=== PATIENT | female | born 1985 | race American Indian/Alaskan Native ===

== ENCOUNTER 2020-11-24 20:40 | Outpatient (CLI) | payer MEDICAID ==
[2020-11-24 21:56] VITALS: BP 116/75
[2020-11-24] MEDS ORDERED: LACTATED RINGERS 1,000 ML ONE (23:24)
[2020-11-24] MEDS ORDERED: LACTATED RINGERS 500 ML IV ONE (23:38)
[2020-11-24] MEDS ORDERED: TERBUTALINE 1 MG/1 ML INJ SUB-Q SCH (23:45)
== END 2020-11-25 00:49 | disposition home or self-care (01) ==
LOC: TRG 20:40 → APU 20:49 → TRG 11-25 00:49
PROVIDERS: ATTEND Obstetrics & Gynecology
DX: O26.893 Other specified pregnancy related conditions, third trimester (principal); M79.89 Other specified soft tissue disorders; Z3A.34 34 weeks gestation of pregnancy
CPT/HCPCS: 59025; J7120; 96360

== ENCOUNTER 2020-12-04 21:08 | Observation (INO) | payer MEDICAID ==
[2020-12-04] MEDS ORDERED: LACTATED RINGERS 1000 ML IV SOLN IV SCH (22:15)
[2020-12-04 22:23] LABS: Bilirubin,Urine NEG (Negative); Blood,Urine SM (Negative); Color,Urine Straw (Yellow); Mucus,Urine FEW /HPF; Protein,Urine <15 mg/dL mg/dL (Negative); Urobilinogen,Urine < 2.0 mg/dL (<2.0)
[2020-12-05] MEDS ORDERED: FLUCONAZOLE 200 MG TAB PO ONE (00:16)
[2020-12-05] MEDS ORDERED: DOCUSATE SODIUM 100 MG CAP PO PRN (00:51)
[2020-12-05] MEDS ORDERED: ACETAMINOPHEN 325 MG TAB PO PRN (00:51)
[2020-12-05 01:12] VITALS: BP 121/76
[2020-12-05] MEDS ORDERED: metroNIDAZOLE 500 MG TAB PO SCH (03:00)
--- NOTE | 2020-12-05 08:24 | History and Physical Report ---
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 She denies vaginal bleeding or leakage of fluid. Her was complicated by sickle cell trait, silent carrier for alpha thalassemia, and large for dates. She is GBS negative. Past History Past Medical History: no pertinent history Past Surgical History: D&C Family/Genetic History: sickle cell/trait Social history: no significant social history - Obstetrical History Expected Date of Delivery: 12/31/20 Actual Gestation: 36 Week(s) 2 Day(s) : 6 Para: 2 Hx # Term Pregnancies: 0 Number of Pregnancies: 0 Spontaneous Abortions: 2 Induced : 1 Number of Living Children: 2 Medications and Allergies Allergies Allergy/AdvReac Type Severity Reaction Status Date / Time shellfish derived Allergy Swelling Verified 11/10/15 08:44 Home Medications Medication Instructions Recorded Confirmed Last Taken Type Ibuprofen [Motrin 800 MG tab] 800 mg PO Q8HR PRN #20 tablet 10/14/14 12/05/20 Unknown Rx Promethazine [Phenergan TAB] 25 mg PO Q8H PRN #20 tablet 10/14/14 12/05/20 Unknown Rx predniSONE [Deltasone] 20 mg PO QAM #5 tab 10/14/14 12/05/20 Unknown Rx Active Meds: Active Medications Acetaminophen (Acetaminophen 325 Mg Tab) 650 mg PO Q4H PRN PRN Reason: Pain MILD(1-3)/Fever >100.5/GIBBONS Docusate Sodium (Docusate Sodium 100 Mg Cap) 100 mg PO Q12H PRN PRN Reason: Constipation Lactated Ringer's (Lactated Ringers 1000 Ml Iv Soln) 1,000 ml IV DIRECT MAGALY Last Admin: 12/04/20 22:28 Dose: 1,000 ml Documented by: Metronidazole (Metronidazole 500 Mg Tab) 500 mg PO Q12HR MAGALY; Protocol Multivitamins/Iron/Calcium ( [id number] Fumarate-Folic Acid Vit Tab) 1 each PO QDAY MAGALY Review of Systems All systems: negative - Vital Signs Vital signs: Vital Signs Pulse BP 80 119/67 12/04/20 22:01 12/04/20 22:01 Temp Pulse Resp BP Pulse Ox 98.6 F 81 18 121/76 99 12/05/20 07:00 12/05/20 08:20 12/05/20 02:18 12/05/20 01:12 12/05/20 08:20 - Physical Exam Breasts: Positive: deferred Abdomen: Positive: soft (obese, gravid ) Uterus: Positive: enlarged (gravid ) Extremities: Positive: normal - Obstetrical FHR: auscultation normal Uterine Contraction Monitor Mode: External Cervical Dilatation: 1 Uterine Contraction Pattern: Irregular Uterine Tone Measurement Phase: Resting Results All other labs normal. Assessment and Plan A: IUP at 36w2d contractions LGA fetus Sickle Cell Trait Silent Carrier for Alpha Thalassemia GBS negative P: Admit for observation Observe for cervical change Monitor maternal and status
--- NOTE | 2020-12-05 08:26 | Short Stay Summary ---
Short Stay Documentation Date of service: 12/05/20 - History H&P: dictated - Allergies and Medications Current Medications: Allergies shellfish derived Allergy (Verified 11/10/15 08:44) Swelling Home Medications Medication Instructions Recorded Confirmed Last Taken Type Ibuprofen [Motrin 800 MG tab] 800 mg PO Q8HR PRN #20 tablet 10/14/14 12/05/20 Unknown Rx Promethazine [Phenergan TAB] 25 mg PO Q8H PRN #20 tablet 10/14/14 12/05/20 Unknown Rx predniSONE [Deltasone] 20 mg PO QAM #5 tab 10/14/14 12/05/20 Unknown Rx Active Medications Acetaminophen (Acetaminophen 325 Mg Tab) 650 mg PO Q4H PRN PRN Reason: Pain MILD(1-3)/Fever >100.5/GIBBONS Docusate Sodium (Docusate Sodium 100 Mg Cap) 100 mg PO Q12H PRN PRN Reason: Constipation Lactated Ringer's (Lactated Ringers 1000 Ml Iv Soln) 1,000 ml IV DIRECT MAGALY Last Admin: 12/04/20 22:28 Dose: 1,000 ml Documented by: Metronidazole (Metronidazole 500 Mg Tab) 500 mg PO Q12HR MAGALY; Protocol Multivitamins/Iron/Calcium ( [id number] Fumarate-Folic Acid Vit Tab) 1 each PO QDAY MAGALY - Hospital course Hospital course: Pt was admitted for observation for contractions. She made no cervical change for 12 hours without cervical change. She was then discharged home, with labor precautions. - Disposition Condition at discharge: Stable Disposition: 01 HOME / SELF CARE / HOMELESS - Discharge Diagnoses (1) contractions Status: Acute Short Stay Discharge Plan Activity: no restrictions Weight Bearing Status: Full Weight Bearing Follow up with: KARY QURESHI MD [Primary Care Provider] - 7 Days LORETTA PLATT CNM [Advanced Practice Nurse] - 7 Days (Keep scheduled appt ) Forms: [facility] Discharge Summary
[2020-12-05] MEDS ORDERED: PRENATAL VIT27-FE FUMARATE-FOLIC ACID VIT TAB PO SCH (10:00)
== END 2020-12-05 08:30 | disposition home or self-care (01) ==
LOC: TRG 21:08 → APU 21:11 → TRG 12-05 00:51 → LD 12-05 01:05
PROVIDERS: ADMIT Obstetrics & Gynecology; ATTEND Obstetrics & Gynecology
DX: O60.03 Preterm labor without delivery, third trimester (principal); Z3A.36 36 weeks gestation of pregnancy
CPT/HCPCS: 59025; 81001; G0378; J7120; 96360

== ENCOUNTER 2020-12-31 23:43 | Outpatient (CLI) | payer MEDICAID ==
[2021-01-01 00:26] VITALS: BP 122/85
== END 2021-01-01 01:00 | disposition home or self-care (01) ==
LOC: TRG 23:43 → APU 23:44 → TRG 01-01 01:00
PROVIDERS: ATTEND Obstetrics & Gynecology
DX: Z34.93 Encounter for supervision of normal pregnancy, unspecified, third trimester (principal); Z3A.40 40 weeks gestation of pregnancy
CPT/HCPCS: 59025

== ENCOUNTER 2021-01-01 05:08 | Inpatient (IN) | payer MEDICAID ==
[2021-01-01] MEDS ORDERED: ACETAMINOPHEN 325 MG TAB PO PRN (05:58)
[2021-01-01] MEDS ORDERED: LOPERAMIDE 2 MG CAP PO PRN (05:58)
[2021-01-01] MEDS ORDERED: fentaNYL 100 MCG/2 ML INJ IV PRN (05:58)
[2021-01-01] MEDS ORDERED: OXYTOCIN 10 UNIT/1 ML INJ IM PRN (05:58)
[2021-01-01] MEDS ORDERED: miSOPROStol 200 MCG TAB PR PRN (05:58)
[2021-01-01] MEDS ORDERED: BUTORPHANOL 2 MG/1 ML INJ IV PRN (05:58)
[2021-01-01] MEDS ORDERED: NALOXONE 0.4 MG/1 ML INJ IV PRN (05:58)
[2021-01-01] MEDS ORDERED: TERBUTALINE 1 MG/1 ML INJ SUB-Q PRN (05:58)
[2021-01-01] MEDS ORDERED: LIDOCAINE (2%) 20 MG/1 ML VIAL 20 ML MDV INFILTRATI ONE (05:58)
[2021-01-01] MEDS ORDERED: MINERAL OIL 30 ML ORAL LIQD PO PRN (05:58)
[2021-01-01] MEDS ORDERED: METHYLERGONOVINE MALEATE 0.2 MG/ML VIAL IM PRN (05:58)
[2021-01-01] MEDS ORDERED: ONDANSETRON 4 MG/2 ML INJ IV PRN (05:58)
[2021-01-01] MEDS ORDERED: CARBOPROST TROMETHAMINE 250 MCG/1 ML INJ IM PRN (05:58)
[2021-01-01] MEDS ORDERED: ePHEDrine SULFATE 50 MG/1 ML INJ IV PRN ×2 (05:58→08:00)
[2021-01-01] MEDS ORDERED: OXYTOCIN DRIP 30 UNITS/500 ML BAG IV SCH ×3 (06:00→07:00)
[2021-01-01 06:31] LABS: Hematocrit 35.4 % (30.3-42.9); Hemoglobin 12.2 gm/dl (10.1-14.3); Mean Corpuscular HGB Conc 34 % (30-34); Mean Corpuscular Volume 88 fl (79-97); Platelet Count 149 K/mm3 (140-440); Red Blood Count 4.02 M/mm3 (3.65-5.03); Red Cell Distribution Width 16.1 % (13.2-15.2)
[2021-01-01] MEDS: LACTATED RINGERS 1,000 ML IV SCH ×3 (07:14→13:17)
--- NOTE | 2021-01-01 07:55 | Anesthesia Consultation ---
Anesthesia Consult and Med Hx Date of service: 01/01/21 - Airway Anesthetic Teeth Evaluation: Good ROM Head & Neck: Adequate Mental/Hyoid Distance: Adequate Mallampati Class: Class II Intubation Access Assessment: Probably Good - Pulmonary Exam CTA: Yes - Cardiac Exam Cardiac Exam: RRR - Pre-Operative Health Status ASA Pre-Surgery Classification: ASA2 Proposed Anesthetic Plan: Epidural - Pulmonary Hx Asthma: No - Cardiovascular System Hx Hypertension: No - Central Nervous System Hx Seizures: No Hx Psychiatric Problems: No - Endocrine Hx Renal Disease: No Hx Hypothyroidism: No Hx Hyperthyroidism: No - Hematic Hx Anemia: Yes Hx Sickle Cell Disease: No (Trait) - Other Systems Hx Alcohol Use: No
--- NOTE | 2021-01-01 07:55 | Progress Note ---
Labor Epidural - Labor Epidural Start Time: 07:35 Stop Time: 07:37 Performed by:: MARAL GOEL Procedure: Patient is requesting epidural for labor pain. H&P, and labs reviewed. Procedure explained, questions answered, consent obtained. Patient in sitting position with blood pressure cuff and pulse ox on and working. Timeout performed immediately before start of procedure. Sterile chlorahexadine 0.5% prep/drape. 3 mL 1% lidocaine skin wheal at L[3]-L[4]. 17-gauge tuohy epidural needle advanced to [id number] with saline at [7] cm. 25-gauge spinal needle advanced until clear, free-flowing CSF. Intrathecal dexmedetomidine [5] mcg administered and needle removed. Epidural catheter advanced to [12] cm, negative aspiration for blood and csf, negative test dose 3 ml 1.5% lidocaine with epinephrine. Sterile sponge and tegaderm applied, followed by tape reinforcement. Patient tolerated procedure well.
[2021-01-01] MEDS ORDERED: NALOXONE 2 MG/2 ML INJ IV PRN (08:00)
--- NOTE | 2021-01-01 08:15 | History and Physical Report ---
History of Present Illness Date of examination: 01/01/21 Date of admission: 01/01/2021 Chief complaint: Contractions History of present illness: 35-year-old -0-3-2 at 40+1 weeks who presents in active labor. The patient initiated care in the first trimester. Her course is complicated by borderline thrombocytopenia, pericardial effusion with echogenic intracardiac foci. The patient is GBS negative. The patient denies leakage of fluid. Past History Past Medical History: other (Alpha thalassemia carrier) Past Surgical History: no surgical history Social history: - Obstetrical History Expected Date of Delivery: 12/31/20 Actual Gestation: 40 Week(s) 1 Day(s) : 6 Para: 2 Hx # Term Pregnancies: 2 Number of Pregnancies: 0 Spontaneous Abortions: 2 Induced : 1 Number of Living Children: 2 Medications and Allergies Allergies Allergy/AdvReac Type Severity Reaction Status Date / Time shellfish derived Allergy Swelling Verified 11/10/15 08:44 Home Medications Medication Instructions Recorded Confirmed Last Taken Type Ascorbic Acid [Vitamin C] 1 tab PO DAILY 01/01/21 01/01/21 Unknown History Mv-Min/Vit C/Elderber/Herb 124 1 each PO DAILY 01/01/21 01/01/21 12/31/20 History [Airborne Elderberry Tablet Eff] Vit-Fe Fumar-FA [ 1 tab PO QDAY 01/01/21 01/01/21 12/31/20 History Vitamin] Active Meds: Active Medications Acetaminophen (Acetaminophen 325 Mg Tab) 650 mg PO Q4H PRN PRN Reason: Pain, Mild (1-3) Butorphanol Tartrate (Butorphanol 2 Mg/1 Ml Inj) 1 mg IV Q2H PRN PRN Reason: Pain, Moderate(4-6) LABOR PAIN Carboprost Tromethamine (Carboprost Tromethamine 250 Mcg/1 Ml Inj) 250 mcg IM ONCE PRN PRN Reason: Uterine Bleeding Ephedrine Sulfate (Ephedrine Sulfate 50 Mg/1 Ml Inj) 10 mg IV Q2M PRN PRN Reason: Hypotension Fentanyl (Fentanyl 100 Mcg/2 Ml Inj) 100 mcg IV Q2H PRN PRN Reason: Pain,Severe (7-10) LABOR PAIN Lactated Ringer's (Lactated Ringers) 1,000 mls @ 125 mls/hr IV DIRECT MAGALY Last Admin: 01/01/21 07:32 Dose: 125 mls/hr Documented by: Oxytocin/Sodium Chloride (Pitocin/Ns 30 Unit/500ml) 30 units in 500 mls @ 40 mls/hr IV TITR MAGALY; Protocol Oxytocin/Sodium Chloride (Pitocin/Ns 30 Unit/500ml) 30 units in 500 mls @ 2 mls/hr IV TITR MAGALY; Protocol Fentanyl/Bupivacaine/Sodium Chlor (Fentanyl-Bupiv 2 Mcg/Ml-0.125%) 200 mcg in 100 mls @ 12 mls/hr EPIDURAL TITR MAGALY; Protocol Loperamide HCl (Loperamide 2 Mg Cap) 2 mg PO ONCE PRN PRN Reason: give with Hemabate Methylergonovine Maleate (Methylergonovine Maleate 0.2 Mg/Ml Vial) 0.2 mg IM ONCE PRN PRN Reason: Uterine Bleeding Mineral Oil (Mineral Oil 30 Ml Oral Liqd) 30 ml PO QHS PRN PRN Reason: Constipation Misoprostol (Misoprostol 200 Mcg Tab) 800 mcg FL ONCE PRN PRN Reason: Uterine Bleeding Naloxone HCl (Naloxone 2 Mg/2 Ml Inj) 0.2 mg IV Q5M PRN PRN Reason: Respiratory sedation Ondansetron HCl (Ondansetron 4 Mg/2 Ml Inj) 4 mg IV Q8H PRN PRN Reason: Nausea And Vomiting Oxytocin (Oxytocin 10 Unit/1 Ml Inj) 10 unit IM ONCE PRN PRN Reason: Uterine Bleeding Terbutaline Sulfate (Terbutaline 1 Mg/1 Ml Inj) 0.25 mg SUB-Q ONCE PRN PRN Reason: Hyperstimulation/Hypertonicity Review of Systems All systems: negative Genitourinary: contractions, no leakage of fluid - Vital Signs Vital signs: Vital Signs Temp Pulse Resp BP Pulse Ox 98.3 F 86 18 121/70 99 01/01/21 05:34 01/01/21 05:34 01/01/21 05:34 01/01/21 05:34 01/01/21 05:34 Temp Pulse Resp BP Pulse Ox 97.9 F 85 18 115/70 99 01/01/21 07:16 01/01/21 08:07 01/01/21 07:16 01/01/21 07:46 01/01/21 08:07 - Physical Exam Breasts: Positive: deferred Cardiovascular: Regular rate Lungs: Positive: Clear to auscultation Abdomen: Positive: normal appearance - Obstetrical Cervical Dilatation: 4 Results Result Diagrams: 01/01/21 06:15 Abnormal lab results 01/01/21 Range/Units 06:15 WBC 13.8 H (4.5-11.0) K/mm3 RDW 16.1 H (13.2-15.2) % All other labs normal. Assessment and Plan - Patient Problems (1) Active labor at term Current Visit: Yes Status: Acute Plan to address problem: Admit to labor and delivery
[2021-01-01] MEDS: fentaNYL-BUPIV 2 MCG/ML-0.125% 200 MCG/100 ML BAG EPIDURAL SCH ×3 (08:20→23:21)
[2021-01-01] MEDS ORDERED: BUPIVACAINE/PF (0.25%) 2.5 MG/ML 10 ML VIAL INFILTRATI ONE (19:41)
[2021-01-01] MEDS ORDERED: GENTAMICIN/NS 80 MG/100 ML 100 ML IV SCH (22:00)
[2021-01-01] MEDS ORDERED: AMPICILLIN/NS 2 GM/100 ML 2 GM/100 ML BAG IV SCH (22:00)
[2021-01-01] MEDS ORDERED: ACETAMINOPHEN 500 MG TAB PO ONE (22:56)
--- NOTE | 2021-01-02 01:54 | Procedure Note ---
OB Delivery Note - Delivery Date of Delivery: 01/02/21 Surgeon: SYLVIA DUPONT Estimated blood loss: 100cc - Vaginal Delivery presentation: vertex Delivery position: OA Intrapartum events: meconium, mult. late decelerations Delivery augmentation: pitocin Delivery monitor: external FHT, external uterine Route of delivery: Indicators for instrumentation: nonreassuring FHR tracing Delivery placenta: spontaneous Delivery cord: 3 umbilical vessels Episiotomy: none Delivery laceration: none Anesthesia: epidural Delivery comments: The patient progressed to complete complete +1. Her intrapartum course was complicated by nonreassuring heart rate tracing. The patient had effective maternal effort and post to deliver a live-born female . After delivery of the head there was noted to be thick meconium stained fluid. No nuchal cord was noted. The shoulders delivered without difficulty. The cord was quickly clamped and cut and the infant was placed on the warmer for resuscitation. Walter shaw was called for resuscitation of the who had Apgars of 0 and 7. The weighed 6 pounds 15 ounces and was 21 inches long. The placenta delivered spontaneously intact with a three-vessel cord no lacerations were noted. Estimated blood loss of 100 mL - Infant A at 1 minute: 0 at 5 minutes: 7 Gender: Female (Weight 6 pounds 15 ounces)
[2021-01-02] MEDS ORDERED: diphenhydrAMINE 25 MG CAP PO PRN (01:57)
[2021-01-02] MEDS ORDERED: ONDANSETRON 4 MG/2 ML INJ IV PRN (01:57)
[2021-01-02] MEDS ORDERED: PROMETHAZINE 25 MG RECT SUPP PR PRN (01:57)
[2021-01-02] MEDS ORDERED: WITCH HAZEL/ GLYCERIN PAD TP PRN (01:57)
[2021-01-02] MEDS ORDERED: PROMETHAZINE 25 MG TAB PO PRN (01:57)
[2021-01-02] MEDS ORDERED: LANOLIN/ZINC/DIMETHICONE (LANSINOH) 7 GM TP PRN (01:57)
[2021-01-02] MEDS ORDERED: MAGNESIUM HYDROXIDE (MOM) ORAL LIQD UDC PO PRN (01:57)
[2021-01-02] MEDS ORDERED: oxyCODONE /ACETAMINOPHEN 5-325MG TAB PO PRN (01:58)
[2021-01-02] MEDS ORDERED: HYDROcodone/ACETAMINOPHEN 5-325 MG TAB PO PRN (01:58)
[2021-01-02] MEDS: IBUPROFEN 600 MG TAB PO SCH ×4 (04:21→23:58)
[2021-01-02 13:08] LABS: Hematocrit 32.9 % (30.3-42.9); Hemoglobin 10.6 gm/dl (10.1-14.3)
[2021-01-03] MEDS: IBUPROFEN 600 MG TAB PO SCH (05:58)
--- NOTE | 2021-01-03 08:05 | Discharge Summary ---
Providers - Providers Date of Admission: 01/01/21 09:45 Date of discharge: 01/03/21 Attending physician: KARY QURESHI Primary care physician: KARY QURESHI Hospitalization Reason for admission: active labor Delivery: Episiotomy: none Laceration: none Other procedures: none complications: none Discharge diagnosis: IUP at term delivered baby: female Hospital course: 35-year-old -0-3-2 at 40+1 weeks who presents in active labor. The patient initiated care in the first trimester. Her course is complicated by borderline thrombocytopenia, pericardial effusion with echogenic intracardiac foci. The patient is GBS negative. The patient denies leakage of fluid. Delivered a viable female infant. Condition at discharge: Good Disposition: 01 HOME / SELF CARE / HOMELESS - Discharge Diagnoses (1) Status post normal vaginal delivery Status: Acute (2) Anemia Status: Acute Qualifiers: Anemia type: other cause Other causes of anemia: acute posthemorrhagic Qualified Code(s): D62 - Acute posthemorrhagic anemia Comment: Asymptomatic Increase iron rich foods into diet Plan - Discharge Medications Prescriptions: Ibuprofen [Motrin 600 MG tab] 600 mg PO Q8H 7 Days #21 tablet - Provider Discharge Summary Activity: routine, no sex for 6 weeks, no heavy lifting 4 weeks, no strenuous exercise Diet: other (Iron rich diet) Instructions: routine Additional instructions: [] Smoking cessation referral if applicable(refer to patient education folder for contact #) [] Refer to [facility] Booklet Call your doctor immediately for: * Fever > 100.5 * Heavy vaginal bleeding ( >1 pad per hour) * Severe persistent headache * Shortness of breath * Reddened, hot, painful area to leg or breast - Follow up plan Follow up: KARY QURESHI MD [Primary Care Provider] - 6 Weeks
[2021-01-03 11:06] VITALS: BP 110/77
== END 2021-01-03 12:30 | disposition home or self-care (01) | DRG 775 ==
LOC: TRG 05:08 → APU 05:10 → LD 06:37 → TRG 09:38 → LD 09:45 → OB 01-02 04:07
PROVIDERS: ADMIT Obstetrics & Gynecology; ATTEND Obstetrics & Gynecology
PROC: 10E0XZZ Delivery of Products of Conception, External Approach (ICD-10-PCS; principal; 2021-01-02)
PROC: 3E0R3BZ Introduction of Anesthetic Agent into Spinal Canal, Percutaneous Approach (ICD-10-PCS; 2021-01-02)
PROC: 00HU33Z Insertion of Infusion Device into Spinal Canal, Percutaneous Approach (ICD-10-PCS; 2021-01-02)
DX: O77.0 Labor and delivery complicated by meconium in amniotic fluid (principal); Z3A.40 40 weeks gestation of pregnancy; Z37.0 Single live birth; O99.12 Other diseases of the blood and blood-forming organs and certain disorders involving the immune mechanism complicating childbirth; D69.6 Thrombocytopenia, unspecified; O76 Abnormality in fetal heart rate and rhythm complicating labor and delivery; O90.81 Anemia of the puerperium; D62 Acute posthemorrhagic anemia; Z20.822 Contact with and (suspected) exposure to COVID-19
CPT/HCPCS: 36415; 59025; 85014; 85018; 85027; 86592; 86850; 86900; 86901; G0378; J0290; J1580; J2590; J7120; U0003